=== PATIENT | male | born 1955 | race Caucasian/White ===

== ENCOUNTER 2024-04-29 13:55 | Emergency (ER) | payer MEDICARE, OTHER ==
[2024-04-29 18:15] LABS: BASOPHILS ABSOLUTE AUTO 0.1 K/mm3 (0.0-0.2); BASOPHILS PERCENT AUTO 0.9 % (0.0-1.0); EOSINOPHILS ABSOLUTE AUTO 0.7 K/mm3 (0.0-0.4); HEMATOCRIT 35.9 % (42.0-52.0); IMMATURE GRAN ABSOLUTE AUTO 0.01 K/mm3 (0.00-0.05); IMMATURE GRAN PERCENT AUTO 0.2 % (0.0-0.4); LYMPHOCYTES ABSOLUTE AUTO 1.6 K/mm3 (1.0-4.8); MEAN CORPUSCULAR HEMOGLOBIN 30.9 pg (28.0-32.0); MEAN CORPUSCULAR HGB CONC 33.4 g/dl (32.0-36.0); MEAN CORPUSCULAR VOLUME 92.5 fl (83.0-99.0); MEAN PLATELET VOLUME 9.7 fl (9.4-12.4); MONOCYTES PERCENT AUTO 14.5 % (0.0-8.0); NEUTROPHILS ABSOLUTE AUTO 3.3 K/mm3 (1.8-7.7); NEUTROPHILS PERCENT AUTO 49.4 % (41.0-71.0); PLATELET COUNT,PLT 276 K/mm3 (150-400); RED BLOOD CELL COUNT 3.88 M/mm3 (4.52-5.90); WHITE BLOOD CELL COUNT,WBC 6.57 K/mm3 (3.9-11.3)
[2024-04-29 18:48] LABS: A/G RATIO 1.1 (1-2); ALBUMIN 3.4 g/dl (3.4-5.0); ANION GAP 14.7 (5-15); BILIRUBIN TOTAL 0.8 mg/dL (0.2-1.0); C-REACTIVE PROTEIN 5.32 mg/dL (<0.30); CALCIUM 9.5 mg/dL (8.5-10.1); CREATININE 1.5 mg/dL (0.7-1.3); EST CRCL DRUG DOSING (CG) 53.27 mL/min; POTASSIUM,K 3.7 mEq/L (3.5-5.1); PROTEIN TOTAL,TP 6.6 g/dl (6.4-8.2)
[2024-04-29] MEDS: Sodium Chloride 0.9% 1,000 ML IV ONE (20:09)
== END 2024-04-29 20:05 | disposition left against medical advice (07) ==
LOC: JD.ED 13:55
DX: M79.89 Other specified soft tissue disorders (principal); F17.210 Nicotine dependence, cigarettes, uncomplicated; Z88.8 Allergy status to other drugs, medicaments and biological substances
CPT/HCPCS: 36415; 80053; 83880; 85025; 86140; 99284

== ENCOUNTER 2024-06-01 12:11 | Emergency (ER) | payer MEDICARE, OTHER ==
[2024-06-01] MEDS: Sodium Chloride 0.9% 10 ML Syringe FLUSH PRN (14:30)
[2024-06-01 14:35] LABS: BASOPHILS ABSOLUTE AUTO 0.1 K/mm3 (0.0-0.2); EOSINOPHILS ABSOLUTE AUTO 0.7 K/mm3 (0.0-0.4); EOSINOPHILS PERCENT AUTO 9.6 % (0.0-6.0); HEMATOCRIT 39.3 % (42.0-52.0); IMMATURE GRAN ABSOLUTE AUTO 0.01 K/mm3 (0.00-0.05); IMMATURE GRAN PERCENT AUTO 0.1 % (0.0-0.4); MEAN CORPUSCULAR HGB CONC 33.1 g/dl (32.0-36.0); MEAN CORPUSCULAR VOLUME 90.6 fl (83.0-99.0); MEAN PLATELET VOLUME 10.9 fl (9.4-12.4); MONOCYTES ABSOLUTE AUTO 0.8 K/mm3 (0.0-0.8); MONOCYTES PERCENT AUTO 11.8 % (0.0-8.0); NEUTROPHILS ABSOLUTE AUTO 3.3 K/mm3 (1.8-7.7); NEUTROPHILS PERCENT AUTO 48.5 % (41.0-71.0); RED BLOOD CELL COUNT 4.34 M/mm3 (4.52-5.90); WHITE BLOOD CELL COUNT,WBC 6.86 K/mm3 (3.9-11.3)
[2024-06-01 14:42] LABS: PLATELET COUNT,PLT 180 K/mm3 (150-400)
[2024-06-01 14:46] LABS: INR 1.33; PROTHROMBIN TIME 13.8 SECONDS (9.7-12.0)
[2024-06-01 14:47] LABS: PTT,PARTIAL THROMBOPLSTIN TIME 39.6 SECONDS (21.7-31.4)
[2024-06-01 14:52] LABS: LACTIC ACID 1.4 mmol/L (0.4-2.0)
[2024-06-01 14:59] LABS: A/G RATIO 0.8 (1-2); ALANINE AMINOTRANSFERASE,ALT 21 U/L (16-63); ALBUMIN 3.2 g/dl (3.4-5.0); ALKALINE PHOSPHATASE 60 U/L (46-116); ASPARTATE AMNIOTRANSFERASE,AST 39 U/L (15-37); BLOOD UREA NITROGEN,BUN 7 mg/dL (7-18); C-REACTIVE PROTEIN 4.61 mg/dL (<0.30); CALCIUM 9.9 mg/dL (8.5-10.1); CARBON DIOXIDE,CO2 20 mEq/L (21-32); CHLORIDE,CL 102 mEq/L (98-107); CREATININE 1.4 mg/dL (0.7-1.3); ESTIMATED GFR 55 mL/min (>60); GLUCOSE RANDOM 83 mg/dL (70-99); PROTEIN TOTAL,TP 7.1 g/dl (6.4-8.2); SODIUM,NA 139 mEq/L (136-145)
[2024-06-01] MEDS: Iopamidol 612 MG/ML 100 ML Bottle IVPUSH ONE (15:19)
[2024-06-01] MEDS: Sodium Chloride 0.9% 10 ML Syringe FLUSH ONE (15:20)
[2024-06-01] MEDS: Lactated Ringers 500 ML IV ONE (15:49)
== END 2024-06-01 17:35 | disposition home or self-care (01) ==
LOC: JD.ED 12:11
DX: R53.82 Chronic fatigue, unspecified (principal); I10 Essential (primary) hypertension; F17.210 Nicotine dependence, cigarettes, uncomplicated; Z88.8 Allergy status to other drugs, medicaments and biological substances
CPT/HCPCS: 36415; 71260; 71260-26; 74177; 74177-26; 80053; 83605; 84484; 85025; 85610; 85730; 86140; 93005; 93010; 96360; 99284; 99284-25; J7120; Q9967

== ENCOUNTER 2024-06-08 11:31 | Inpatient (IN) | payer MEDICARE, OTHER ==
[2024-06-08 12:22] LABS: BASOPHILS ABSOLUTE AUTO 0.1 K/mm3 (0.0-0.2); BASOPHILS PERCENT AUTO 1.1 % (0.0-1.0); EOSINOPHILS ABSOLUTE AUTO 0.8 K/mm3 (0.0-0.4); HEMATOCRIT 38.3 % (42.0-52.0); HEMOGLOBIN 12.8 gm/dl (14.0-18.0); IMMATURE GRAN ABSOLUTE AUTO 0.01 K/mm3 (0.00-0.05); IMMATURE GRAN PERCENT AUTO 0.2 % (0.0-0.4); LYMPHOCYTES ABSOLUTE AUTO 1.8 K/mm3 (1.0-4.8); LYMPHOCYTES PERCENT AUTO 28.9 % (24.0-44.0); MEAN CORPUSCULAR HEMOGLOBIN 29.4 pg (28.0-32.0); MEAN CORPUSCULAR HGB CONC 33.4 g/dl (32.0-36.0); MEAN CORPUSCULAR VOLUME 87.8 fl (83.0-99.0); MONOCYTES ABSOLUTE AUTO 0.7 K/mm3 (0.0-0.8); MONOCYTES PERCENT AUTO 10.7 % (0.0-8.0); NEUTROPHILS ABSOLUTE AUTO 2.8 K/mm3 (1.8-7.7); NEUTROPHILS PERCENT AUTO 46.1 % (41.0-71.0); PLATELET COUNT,PLT 114 K/mm3 (150-400); RED BLOOD CELL COUNT 4.36 M/mm3 (4.52-5.90)
[2024-06-08] MEDS: Lactated Ringers 1,000 ML IV SCH ×2 (12:41→17:51)
[2024-06-08 12:58] LABS: LACTIC ACID 1.9 mmol/L (0.4-2.0)
[2024-06-08 13:00] LABS: A/G RATIO 0.8 (1-2); ALANINE AMINOTRANSFERASE,ALT 27 U/L (16-63); ALBUMIN 3.1 g/dl (3.4-5.0); ALKALINE PHOSPHATASE 84 U/L (46-116); ANION GAP 19.1 (5-15); ASPARTATE AMNIOTRANSFERASE,AST 48 U/L (15-37); BILIRUBIN TOTAL 2.2 mg/dL (0.2-1.0); BLOOD UREA NITROGEN,BUN 21 mg/dL (7-18); BUN/CREATININE RATIO 13.1 (14-18); C-REACTIVE PROTEIN 6.21 mg/dL (<0.30); CALCIUM 10.8 mg/dL (8.5-10.1); CARBON DIOXIDE,CO2 22 mEq/L (21-32); CHLORIDE,CL 104 mEq/L (98-107); CREATININE 1.6 mg/dL (0.7-1.3); ESTIMATED GFR 47 mL/min (>60); GLUCOSE RANDOM 88 mg/dL (70-99); LIPASE 38 U/L (16-77); MAGNESIUM 1.3 mg/dL (1.8-2.4); POTASSIUM,K 3.1 mEq/L (3.5-5.1); PROTEIN TOTAL,TP 6.9 g/dl (6.4-8.2); SODIUM,NA 142 mEq/L (136-145); TSH 0.473 uIU/mL (0.358-3.74)
[2024-06-08] MEDS: Potassium Chloride 10 MEQ in Premix Bag 1 BAG IV SCH (13:30)
[2024-06-08] MEDS: Magnesium Sulf/Wat 2 GM/50 mL 2 GM/50 ML BAG IV ONE (13:31)
[2024-06-08] MEDS: Magnesium Sulf/Wat 2 GM/50 mL 2 GM/50 ML BAG IV SCH (13:38)
[2024-06-08] MEDS ORDERED: Polyethylene Glycol 3350 Powder 17 GM Packet PO PRN (15:05)
[2024-06-08] MEDS ORDERED: Docusate Sodium 100 MG Cap PO PRN (15:05)
[2024-06-08] MEDS: Magnesium Sulf/Wat 2 GM/50 mL 2 GM in Premix Bag 1 BAG IV ONE (17:00)
[2024-06-08 17:03] LABS: FOLIC ACID 5.9 ng/mL (8.6-58.9)
[2024-06-08] MEDS: Enoxaparin 40 MG/0.4 ML Syringe SUBCUT SCH (17:51)
[2024-06-09 04:45] LABS: BASOPHILS PERCENT AUTO 0.8 % (0.0-1.0); EOSINOPHILS ABSOLUTE AUTO 0.6 K/mm3 (0.0-0.4); HEMATOCRIT 32.2 % (42.0-52.0); HEMOGLOBIN 10.9 gm/dl (14.0-18.0); IMMATURE GRAN ABSOLUTE AUTO 0.01 K/mm3 (0.00-0.05); IMMATURE GRAN PERCENT AUTO 0.2 % (0.0-0.4); LYMPHOCYTES ABSOLUTE AUTO 1.5 K/mm3 (1.0-4.8); LYMPHOCYTES PERCENT AUTO 28.5 % (24.0-44.0); MEAN CORPUSCULAR HEMOGLOBIN 29.5 pg (28.0-32.0); MEAN CORPUSCULAR HGB CONC 33.9 g/dl (32.0-36.0); MEAN PLATELET VOLUME 11.6 fl (9.4-12.4); MONOCYTES ABSOLUTE AUTO 0.6 K/mm3 (0.0-0.8); NEUTROPHILS ABSOLUTE AUTO 2.4 K/mm3 (1.8-7.7); NEUTROPHILS PERCENT AUTO 46.5 % (41.0-71.0); PLATELET COUNT,PLT 108 K/mm3 (150-400); WHITE BLOOD CELL COUNT,WBC 5.09 K/mm3 (3.9-11.3)
[2024-06-09 04:58] LABS: A/G RATIO 0.8 (1-2); ALBUMIN 2.6 g/dl (3.4-5.0); ANION GAP 18.2 (5-15); BUN/CREATININE RATIO 13.6 (14-18); CALCIUM 9.9 mg/dL (8.5-10.1); CREATININE 1.4 mg/dL (0.7-1.3); EST CRCL DRUG DOSING (CG) 46.33 mL/min; POTASSIUM,K 3.2 mEq/L (3.5-5.1); PROTEIN TOTAL,TP 5.9 g/dl (6.4-8.2)
[2024-06-09] MEDS: Folic Acid 1 MG Tab PO SCH (09:28)
[2024-06-09] MEDS: Cholecalciferol (Vitamin D3) 5,000 UNIT Cap PO SCH (09:28)
[2024-06-09] MEDS: Enoxaparin 40 MG/0.4 ML Syringe SUBCUT SCH (09:28)
[2024-06-09] MEDS: D5 1/2 NS w/ 20 mEq/L KCl 1,000 ML IV SCH (13:08)
[2024-06-09] MEDS: Potassium Chloride 20 MEQ Tab.ER PO SCH (16:42)
[2024-06-09] MEDS: Citalopram 20 MG Tab PO SCH (16:42)
[2024-06-09] MEDS: Ondansetron 4 MG Tab.DIS PO PRN (16:42)
[2024-06-09] MEDS: Acetaminophen 325 MG Tab PO PRN (16:49)
[2024-06-09] MEDS: Ondansetron 4 MG/2 ML SDV IV PRN (16:50)
[2024-06-09] MEDS: Potassium Chloride 10 MEQ in Premix Bag 1 BAG IV SCH (17:49)
[2024-06-09] MEDS: Melatonin 3 MG Tab PO SCH (19:55)
[2024-06-10 04:37] LABS: BASOPHILS PERCENT AUTO 0.6 % (0.0-1.0); EOSINOPHILS ABSOLUTE AUTO 0.5 K/mm3 (0.0-0.4); EOSINOPHILS PERCENT AUTO 11.1 % (0.0-6.0); HEMATOCRIT 28.6 % (42.0-52.0); HEMOGLOBIN 9.5 gm/dl (14.0-18.0); IMMATURE GRAN ABSOLUTE AUTO 0.01 K/mm3 (0.00-0.05); IMMATURE GRAN PERCENT AUTO 0.2 % (0.0-0.4); LYMPHOCYTES ABSOLUTE AUTO 1.3 K/mm3 (1.0-4.8); LYMPHOCYTES PERCENT AUTO 27.6 % (24.0-44.0); MEAN CORPUSCULAR HEMOGLOBIN 28.9 pg (28.0-32.0); MEAN CORPUSCULAR HGB CONC 33.2 g/dl (32.0-36.0); MEAN CORPUSCULAR VOLUME 86.9 fl (83.0-99.0); MEAN PLATELET VOLUME 11.1 fl (9.4-12.4); MONOCYTES ABSOLUTE AUTO 0.7 K/mm3 (0.0-0.8); MONOCYTES PERCENT AUTO 15.8 % (0.0-8.0); NEUTROPHILS ABSOLUTE AUTO 2.1 K/mm3 (1.8-7.7); NEUTROPHILS PERCENT AUTO 44.7 % (41.0-71.0); PLATELET COUNT,PLT 93 K/mm3 (150-400); RED BLOOD CELL COUNT 3.29 M/mm3 (4.52-5.90); WHITE BLOOD CELL COUNT,WBC 4.67 K/mm3 (3.9-11.3)
[2024-06-10 05:03] LABS: A/G RATIO 0.8 (1-2); ALBUMIN 2.4 g/dl (3.4-5.0); BILIRUBIN TOTAL 1.6 mg/dL (0.2-1.0); BUN/CREATININE RATIO 14.2 (14-18); CALCIUM 9.7 mg/dL (8.5-10.1); CREATININE 1.2 mg/dL (0.7-1.3); EST CRCL DRUG DOSING (CG) 54.05 mL/min; MAGNESIUM 1.6 mg/dL (1.8-2.4); PROTEIN TOTAL,TP 5.3 g/dl (6.4-8.2)
[2024-06-10 05:21] LABS: ANION GAP 13.4 (5-15); POTASSIUM,K 3.4 mEq/L (3.5-5.1)
[2024-06-10 06:36] LABS: SLIDE REVIEW ABNORMAL SMEAR
[2024-06-10] MEDS: Sodium Chloride 0.9% 1,000 ML IV SCH (07:46)
[2024-06-10] MEDS: Magnesium Sulf/Wat 2 GM/50 mL 2 GM in Premix Bag 1 BAG IV ONE (07:46)
[2024-06-10] MEDS: Potassium Chloride 10 MEQ in Premix Bag 1 BAG IV SCH (07:54)
[2024-06-10] MEDS: Multivitamin Tab PO SCH (12:49)
[2024-06-10] MEDS: Thiamine 100 MG Tab PO SCH (12:49)
[2024-06-10] MEDS: Dextrose 5%-0.45% NaCl 1,000 ML IV SCH (18:13)
[2024-06-11 04:30] LABS: BASOPHILS PERCENT AUTO 0.7 % (0.0-1.0); EOSINOPHILS ABSOLUTE AUTO 0.6 K/mm3 (0.0-0.4); EOSINOPHILS PERCENT AUTO 12.6 % (0.0-6.0); HEMATOCRIT 28.7 % (42.0-52.0); HEMOGLOBIN 9.5 gm/dl (14.0-18.0); IMMATURE GRAN ABSOLUTE AUTO 0.01 K/mm3 (0.00-0.05); IMMATURE GRAN PERCENT AUTO 0.2 % (0.0-0.4); LYMPHOCYTES ABSOLUTE AUTO 1.3 K/mm3 (1.0-4.8); LYMPHOCYTES PERCENT AUTO 28.8 % (24.0-44.0); MEAN CORPUSCULAR HEMOGLOBIN 29.2 pg (28.0-32.0); MEAN CORPUSCULAR HGB CONC 33.1 g/dl (32.0-36.0); MEAN CORPUSCULAR VOLUME 88.3 fl (83.0-99.0); MONOCYTES ABSOLUTE AUTO 0.7 K/mm3 (0.0-0.8); MONOCYTES PERCENT AUTO 15.5 % (0.0-8.0); NEUTROPHILS ABSOLUTE AUTO 1.9 K/mm3 (1.8-7.7); NEUTROPHILS PERCENT AUTO 42.2 % (41.0-71.0); PLATELET COUNT,PLT 89 K/mm3 (150-400); RED BLOOD CELL COUNT 3.25 M/mm3 (4.52-5.90); WHITE BLOOD CELL COUNT,WBC 4.44 K/mm3 (3.9-11.3)
[2024-06-11 04:59] LABS: A/G RATIO 0.7 (1-2); ALBUMIN 2.2 g/dl (3.4-5.0); ANION GAP 12.4 (5-15); BILIRUBIN TOTAL 1.3 mg/dL (0.2-1.0); BUN/CREATININE RATIO 12.7 (14-18); CALCIUM 8.8 mg/dL (8.5-10.1); CREATININE 1.1 mg/dL (0.7-1.3); EST CRCL DRUG DOSING (CG) 60.12 mL/min; MAGNESIUM 1.4 mg/dL (1.8-2.4); POTASSIUM,K 3.4 mEq/L (3.5-5.1); PROTEIN TOTAL,TP 5.2 g/dl (6.4-8.2)
[2024-06-11 05:13] LABS: SLIDE REVIEW ABNORMAL SMEAR
[2024-06-11] MEDS: Magnesium Sulf/Wat 4 GM/50 mL 4 GM in Premix Bag 1 BAG IV ONE (08:35)
[2024-06-11] MEDS: Megestrol Susp 40 MG/ML 10 ML UD Cup PO SCH (08:37)
[2024-06-11] MEDS: Potassium Bicarbonate/Cit Ac 20 MEQ Effervescent Tab PO SCH (08:37)
[2024-06-11] MEDS ORDERED: Dronabinol 2.5 MG Cap PO SCH (11:00)
[2024-06-12 05:51] LABS: BASOPHILS PERCENT AUTO 0.6 % (0.0-1.0); EOSINOPHILS ABSOLUTE AUTO 0.5 K/mm3 (0.0-0.4); EOSINOPHILS PERCENT AUTO 10.1 % (0.0-6.0); HEMATOCRIT 26.6 % (42.0-52.0); HEMOGLOBIN 9.1 gm/dl (14.0-18.0); IMMATURE GRAN ABSOLUTE AUTO 0.01 K/mm3 (0.00-0.05); IMMATURE GRAN PERCENT AUTO 0.2 % (0.0-0.4); LYMPHOCYTES ABSOLUTE AUTO 1.4 K/mm3 (1.0-4.8); LYMPHOCYTES PERCENT AUTO 30.4 % (24.0-44.0); MEAN CORPUSCULAR HEMOGLOBIN 29.3 pg (28.0-32.0); MEAN CORPUSCULAR HGB CONC 34.2 g/dl (32.0-36.0); MEAN CORPUSCULAR VOLUME 85.5 fl (83.0-99.0); MEAN PLATELET VOLUME 10.9 fl (9.4-12.4); MONOCYTES ABSOLUTE AUTO 0.8 K/mm3 (0.0-0.8); MONOCYTES PERCENT AUTO 15.9 % (0.0-8.0); NEUTROPHILS PERCENT AUTO 42.8 % (41.0-71.0); PLATELET COUNT,PLT 105 K/mm3 (150-400); RED BLOOD CELL COUNT 3.11 M/mm3 (4.52-5.90); WHITE BLOOD CELL COUNT,WBC 4.73 K/mm3 (3.9-11.3)
[2024-06-12 05:52] LABS: A/G RATIO 0.8 (1-2); ALBUMIN 2.2 g/dl (3.4-5.0); ANION GAP 8.3 (5-15); BILIRUBIN TOTAL 1.2 mg/dL (0.2-1.0); CALCIUM 8.9 mg/dL (8.5-10.1); CREATININE 0.8 mg/dL (0.7-1.3); EST CRCL DRUG DOSING (CG) 87.09 mL/min; MAGNESIUM 1.7 mg/dL (1.8-2.4); PHOSPHORUS 2.5 mg/dL (2.6-4.7); POTASSIUM,K 3.3 mEq/L (3.5-5.1); PROTEIN TOTAL,TP 5.1 g/dl (6.4-8.2)
[2024-06-12] MEDS ORDERED: Potassium Chloride 20 MEQ Tab.ER PO ONE (09:00)
[2024-06-14 09:53] LABS: ANION GAP 9.1 (5-15); BUN/CREATININE RATIO 17.1 (14-18); CALCIUM 8.5 mg/dL (8.5-10.1); CREATININE 0.7 mg/dL (0.7-1.3); EST CRCL DRUG DOSING (CG) 97.26 mL/min; MAGNESIUM 1.4 mg/dL (1.8-2.4); POTASSIUM,K 3.1 mEq/L (3.5-5.1)
[2024-06-14] MEDS: Sodium Chloride 0.9% 1,000 ML IV SCH (11:09)
[2024-06-14] MEDS: Potassium Chloride 10 MEQ in Premix Bag 1 BAG IV SCH (11:09)
[2024-06-14] MEDS: Magnesium Sulf/Wat 4 GM/50 mL 4 GM in Premix Bag 1 BAG IV ONE (11:11)
[2024-06-14] MEDS ORDERED: Loperamide 2 MG Cap PO PRN (11:18)
[2024-06-14] MEDS: Loperamide 2 MG Cap PO ONE (11:57)
[2024-06-14] MEDS: Magnesium Oxide 400 MG Tab PO SCH (20:04)
[2024-06-15] MEDS: Potassium Bicarbonate/Cit Ac 20 MEQ Effervescent Tab PO SCH (09:19)
[2024-06-15] MEDS: Citalopram 20 MG Tab PO SCH (09:19)
== END 2024-06-15 13:15 | DRG 641 ==
LOC: JD.ED 11:31 → JD.MS 15:05
PROVIDERS: ADMIT Student in an Organized Health Care Education/Training Program; ATTEND Family Medicine
DX: R62.7 Adult failure to thrive (principal); E46 Unspecified protein-calorie malnutrition; E83.42 Hypomagnesemia; I10 Essential (primary) hypertension; E87.29 Other acidosis; L97.921 Non-pressure chronic ulcer of unspecified part of left lower leg limited to breakdown of skin; L97.911 Non-pressure chronic ulcer of unspecified part of right lower leg limited to breakdown of skin; Z66 Do not resuscitate; Z68.20 Body mass index [BMI] 20.0-20.9, adult; E86.0 Dehydration; E87.6 Hypokalemia; E80.6 Other disorders of bilirubin metabolism; N18.31 Chronic kidney disease, stage 3a; I12.9 Hypertensive chronic kidney disease with stage 1 through stage 4 chronic kidney disease, or unspecified chronic kidney disease; F32.A Depression, unspecified; E53.8 Deficiency of other specified B group vitamins; R11.2 Nausea with vomiting, unspecified; E55.9 Vitamin D deficiency, unspecified; D69.6 Thrombocytopenia, unspecified; I71.43 Infrarenal abdominal aortic aneurysm, without rupture; D64.9 Anemia, unspecified; T73.0XXA Starvation, initial encounter; X58.XXXA Exposure to other specified factors, initial encounter; I95.2 Hypotension due to drugs; T46.5X5A Adverse effect of other antihypertensive drugs, initial encounter; Z85.820 Personal history of malignant melanoma of skin; Z88.8 Allergy status to other drugs, medicaments and biological substances
CPT/HCPCS: 36415; 71045; 80053; 82306; 82607; 82746; 83605; 83690; 83735; 83880; 84100; 84443; 85025; 86140; 93005; 96361; 96365; 96368; 99285; J3475; J3480 ×2; J7120; 29580-GP; 80048; 81003; 82010; 82248; 82947; 83930; 83935; 93010; 97110-GP; 97116-GP; 97161-GP; 97530-GP; 97597-GP; A9270-GY; J1650; J2405; J7030; J7799; U0002